=== PATIENT | male | born 1975 | race Caucasian/White ===

== ENCOUNTER → 2017-07-17 | Outpatient (CLI) | payer OTHER ==
--- NOTE | 2017-07-20 10:20 | PCVCIMAG ---
APPROVED REPORT Study performed: 07/17/2017 13:18:08 EXAM: Comprehensive 2D, Doppler, and color-flow Echocardiogram Patient [facility] BSA: 2.32 HR: 61 bpmBP: 148/80 mmHg Rhythm: NSR Other Information Study Quality: Good Risk Factors: Cardiac Risk Factors: HTN Indications Chest Pain Hypertension/HDD 2D Dimensions LVEF(%): 77.57 (>50%) IVSd: 10.46 (7-11mm)LVOT Diam: 23.30 (18-24mm) LVDd: 52.56 mm PWd: 9.33 (7-11mm)Ascending Ao: 37.81 (22-36mm) LVDs: 28.09 (25-40mm) Left Atrium: 39.82 (27-40mm) Aortic Root: 29.86 mm LV Single Plane 4CH: 63.66 % LV Single Plane 2CH: 62.75 %Castrejon's LVEF: 63.21 % Biplane EF: 63.6 % Volumes Left Atrial Volume (Systole) Single Plane 4CH: 87.07 mLSingle Plane 2CH: 85.25 mL Biplane LA Volume: 93.00 mLLA ESV Index: 40.00 mL/m2 Aortic Valve AoV Peak Harjinder.: 1.57 m/s AO Peak Gr.: 9.87 mmHgLVOT Max P.28 mmHg LVOT Max V: 1.03 m/s SHAR Vmax: 2.81 cm2 Mitral Valve E/A Ratio: 1.2 MV Decel. Time: 247.20 ms MV E Max Harjinder.: 0.62 m/s MV A Harjinder.: 0.52 m/s IVRT: 96.89 ms TDI E/Lateral E': 6.20E/Medial E': 7.75 Medial E' Harjinder.: 0.08 m/s Lateral E' Harjindre.: 0.10 m/s Pulmonary Valve PV Peak Harjinder.: 1.24 m/sPV Peak Gr.: 6.14 mmHg Pulmonary Vein P Vein S: 0.53 m/sP Vein A: 0.29 m/s P Vein D: 0.46 m/sP Vein A Dur.: 107.3 msec P Vein S/D Ratio: 1.15 Tricuspid Valve TV Vmax: 0.69 m/s Left Ventricle The left ventricle is normal size. There is normal LV segmental wall motion. There is normal left ventricular wall thickness. Left ventricular systolic function is normal. The left ventricular ejection fraction is within the normal range. LVEF is 60-65%. The left ventricular diastolic function is normal. Right Ventricle The right ventricle is normal size. The right ventricular systolic function is normal. Atria Left atrium is borderline dilated. The right atrium size is normal. Aortic Valve The aortic valve is normal in structure. No aortic regurgitation is present. There is no aortic valvular stenosis. Mitral Valve The mitral valve is normal in structure. There is no mitral valve regurgitation noted. No evidence of mitral valve stenosis. Tricuspid Valve The tricuspid valve is normal in structure. There is no tricuspid valve regurgitation noted. Pulmonic Valve The pulmonary valve is normal in structure. There is no pulmonic valvular regurgitation. Great Vessels The aortic root is normal in size. The ascending aorta is normal in size. IVC is normal in size and collapses with >50% inspiration Pericardium There is no pericardial effusion. There is no pleural effusion. <Conclusion> The left ventricle is normal size. There is normal left ventricular wall thickness. LVEF is 60-65%. The left ventricular diastolic function is normal. The right ventricle is normal size. Left atrium is borderline dilated. There is no aortic valvular stenosis. There is no mitral valve regurgitation noted. There is no tricuspid valve regurgitation noted. There is no pericardial effusion.
== END | disposition home or self-care (01) ==
LOC: PCVCIMAG 13:22
PROVIDERS: ATTEND Internal Medicine Cardiovascular Disease
DX: I10 Essential (primary) hypertension (principal); R00.1 Bradycardia, unspecified
CPT/HCPCS: 93017; 93306